=== PATIENT | male | born 1955 | race Caucasian/White ===

== ENCOUNTER → 2017-07-02 | Outpatient (CLI) | payer OTHER ==
--- NOTE | 2017-07-02 16:17 | DIAGNOSTIC IMAGING REPORT ---
LEFT HAND MIN 3 VIEWS ROUTINE, LEFT WRIST MIN 3 VIEWS ROUTINE HISTORY: 61 years-old Male CONTUSION acute left hand and wrist pain status post fall. COMPARISON: None available TECHNIQUE: 3 views of the left hand and 3 views of the left wrist FINDINGS: Hand: Severe degenerative changes are present involving the first carpal metacarpal joint with exuberant lateral osteophytosis. Subcortical cystic changes and sclerosis are also noted. Mild triscaphe degenerative changes are noted. No acute fracture, dislocation or radiopaque foreign body. Wrist: Degenerative changes about the first carpal metacarpal joint redemonstrated. Radius and ulna appear intact without acute fracture or dislocation. No radiopaque foreign body. IMPRESSION: 1. No acute fracture or dislocation of the left hand or wrist. 2. Severe degenerative changes about the first carpometacarpal joint. The above report was generated using voice recognition software. It may contain grammatical, syntax or spelling errors. Electronically signed by: Tonny Steele M.D. 07/02/2017 4:15 PM Dictated Date/Time: 07/02/2017 4:13 PM
--- NOTE | 2017-07-02 16:18 | DIAGNOSTIC IMAGING REPORT ---
PELVIS 1 OR 2 VIEW ROUTINE HISTORY: 61 years-old Male acute pelvic pain status post fall with contusion. COMPARISON: None available TECHNIQUE: Single AP view of the pelvis FINDINGS: The bony pelvis is intact without acute fracture or dislocation. Mild degenerative changes involve the bilateral hips. There is intervertebral disc space narrowing and facet arthropathy of the lower lumbar spine. Probable phleboliths are seen within the pelvis. IMPRESSION: No acute bony abnormality. The above report was generated using voice recognition software. It may contain grammatical, syntax or spelling errors. Electronically signed by: Tonny Steele M.D. 07/02/2017 4:17 PM Dictated Date/Time: 07/02/2017 4:16 PM
== END | disposition home or self-care (01) ==
LOC: EDBD → C.RAD1850 15:55
PROVIDERS: ATTEND Preventive Medicine Occupational Medicine
DX: S60.222A Contusion of left hand, initial encounter (principal); S60.212A Contusion of left wrist, initial encounter; S30.0XXA Contusion of lower back and pelvis, initial encounter; W19.XXXA Unspecified fall, initial encounter